=== PATIENT | male | born 1935 | race Caucasian/White ===

== ENCOUNTER 2020-05-14 14:23 | Emergency (ER) | payer OTHER, MEDICAID ==
[~2020-05-14] VITALS: Ht 167.6 cm; Wt 70.3 kg
[2020-05-14 14:30] VITALS: Ht 167.6 cm; Wt 70.3 kg
[2020-05-14 15:59] LABS: BASOPHIL % 0.5 % (0-2); PLATELET COUNT 197 x10^3mcL (130-400); RED CELL DISTRIBUTION WIDTH 13.2 % (11.5-14.5)
[2020-05-14 16:00] LABS: CALCIUM 8.6 mg/dL (8.5-10.1); CARBON DIOXIDE 23.1 mmol/L (21-32); CHLORIDE SERUM 103 mmol/L (98-107); CREATININE SERUM 1.3 mg/dL (0.7-1.3); GLUCOSE SERUM 126 mg/dL (74-106); POTASSIUM SERUM 4.3 mmol/L (3.5-5.1); SODIUM SERUM 138 mmol/L (136-145)
[2020-05-14 16:04] LABS: ALBUMIN 3.7 g/dL (3.4-5.0); ALKALINE PHOSPHATASE 86 U/L (46-116); ALT/SGPT 26 U/L (16-63); AST/SGOT 25 U/L (15-37); BILIRUBIN TOTAL 0.6 mg/dL (0.20-1.00); TOTAL PROTEIN, SERUM 7.3 g/dL (6.4-8.2)
[2020-05-14 17:16] VITALS: BP 120/73
== END 2020-05-14 17:16 | disposition home or self-care (01) ==
LOC: ED 14:23
PROVIDERS: Emergency Medicine
DX: S02.2XXA Fracture of nasal bones, initial encounter for closed fracture (principal); V89.0XXA Person injured in unspecified motor-vehicle accident, nontraffic, initial encounter; Y93.89 Activity, other specified; Y92.89 Other specified places as the place of occurrence of the external cause; Y99.8 Other external cause status
CPT/HCPCS: 90715; J2001; Q0092

== ENCOUNTER 2020-05-19 14:24 | Emergency (ER) | payer OTHER, MEDICAID ==
[~2020-05-19] VITALS: Ht 160 cm; Wt 63.0 kg
[2020-05-19 14:33] VITALS: Ht 160 cm; Wt 63.0 kg
[2020-05-19 14:48] VITALS: BP 107/65
== END 2020-05-19 14:48 | disposition home or self-care (01) ==
LOC: ED 14:24
DX: S01.81XD Laceration without foreign body of other part of head, subsequent encounter (principal); W22.8XXD Striking against or struck by other objects, subsequent encounter

== ENCOUNTER 2020-06-19 15:10 | Emergency (ER) | payer OTHER, MEDICAID ==
[~2020-06-19] VITALS: Ht 157.5 cm; Wt 59.0 kg
[~2020-06-19 15:10] MED LIST: ARICEPT5 MG PO; CARDURA8 MG PO; CIPRO500 MG PO; FEOSOL65 M1 PO; FINASTERIDE1 MG PO; FLOMAX0.4 MG PO; IBUPROFEN800 MG PO; ZUPLENZ4 MG MM
[2020-06-19 15:42] VITALS: BP 123/78; Ht 157.5 cm; Wt 59.0 kg
== END 2020-06-19 18:18 | disposition home or self-care (01) ==
LOC: ED 15:10
DX: Z46.6 Encounter for fitting and adjustment of urinary device (principal)